=== PATIENT | male | born 1975 ===

== ENCOUNTER 2019-09-09 21:08 | Emergency (ER) | payer BC ==
[~2019-09-09] VITALS: Ht 177.8 cm; Wt 77.0 kg
[~2019-09-09 21:08] MED LIST: AMOXICILLIN/CL875 MG OR; DOXYCYCL HYC100 MG; DOXYCYCL HYC100 MG PO; FLONASE NASAL50 MCG; KEFLEX500 MG PO; MEDDOSEPAK PO; MOTRIN200 M1 PO; NO HOME MEDS
[2019-09-09] MEDS ORDERED: LORTAB 1010 MG PO (22:10)
[2019-09-09] MEDS ORDERED: CEPHALEXIN500 MG PO (22:10)
[2019-09-09] MEDS ORDERED: BACTRIM DS1 TAB PO (22:10)
[2019-09-09 22:30] VITALS: BP 132/77
== END 2019-09-09 22:30 | disposition home or self-care (01) | DRG 603 ==
LOC: ED 21:08
PROC: 0H98XZZ Drainage of Buttock Skin, External Approach (ICD-10-PCS; principal; 2019-09-09)
DX: L02.31 Cutaneous abscess of buttock (principal); F17.220 Nicotine dependence, chewing tobacco, uncomplicated

== ENCOUNTER 2019-09-10 20:27 | Emergency (ER) | payer BC ==
[~2019-09-10] VITALS: Ht 177.8 cm; Wt 77.0 kg
[~2019-09-10 20:27] MED LIST changes: +BACTRIM DS1 TAB PO; +CEPHALEXIN500 MG PO; +LORTAB 1010 MG PO
[2019-09-10 21:31] VITALS: BP 138/86
== END 2019-09-10 21:31 | disposition home or self-care (01) | DRG 951 ==
LOC: ED 20:27
DX: Z48.01 Encounter for change or removal of surgical wound dressing (principal)

== ENCOUNTER 2019-09-12 21:53 | Emergency (ER) | payer BC ==
[~2019-09-12] VITALS: Ht 177.8 cm; Wt 77.0 kg
[2019-09-12 23:15] VITALS: BP 136/90
== END 2019-09-12 23:15 | disposition home or self-care (01) | DRG 951 ==
LOC: ED 21:53
DX: Z48.01 Encounter for change or removal of surgical wound dressing (principal); F17.290 Nicotine dependence, other tobacco product, uncomplicated

== ENCOUNTER 2022-05-22 20:40 | Emergency (ER) | payer BC ==
[~2022-05-22] VITALS: Ht 177.8 cm; Wt 72.0 kg
[2022-05-22] MEDS ORDERED: KEFLEX500 MG PO (22:14)
[2022-05-22 22:29] VITALS: BP 138/70
== END 2022-05-22 22:46 | disposition home or self-care (01) | DRG 563 ==
LOC: ED 20:40
DX: S62.502A Fracture of unspecified phalanx of left thumb, initial encounter for closed fracture (principal); W22.8XXA Striking against or struck by other objects, initial encounter